=== PATIENT | female | born 1945 | race Caucasian/White ===

== ENCOUNTER → 2017-04-08 15:47 | Outpatient (CLI) | payer MEDICARE ==
[2013-03-17 14:56] VITALS: BMI 46.5
[~2017-04-08 15:47] MED LIST: BUDEPRION SR150 MG PO; ESTRACE1 MG PO; GAS-X80 MG PO; INDERAL 40 MG T40 MG PO; KLOR-CON M2020 MEQ PO; LASIX40 MG PO; LEVAQUIN750 MG PO; MIRAPEX1 MG; MULTIPLE VITAMI1 TA1 PO; OCUVITE PRESERV1 TAB PO; OS-CAL 500+D TA1 TAB PO; PROTONIX40 MG PO; SYNTHROID137 MCG PO; TYLENOL325 MG PO; VITAMIN B-121000 MC3
[2017-04-08 19:19] LABS: % SATURATION 4 % (15-55); IRON 21 ug/dl (35-150); TOTAL IRON BIND CAPACITY 517 ug/dl (260-445)
[2017-04-08 19:31] LABS: UNSAT IRON BIND CAPACITY 496 ug/dl (150-375)
== END | disposition home or self-care (01) ==
LOC: D.LABREF 15:47
PROVIDERS: Family Medicine
DX: D64.9 Anemia, unspecified (principal)

== ENCOUNTER → 2017-05-15 18:15 | Outpatient (CLI) | payer MEDICARE ==
[2013-03-17 14:56] VITALS: BMI 46.5
== END | disposition home or self-care (01) ==
LOC: D.MAMMO 04-24 15:30
DX: Z12.31 Encounter for screening mammogram for malignant neoplasm of breast (principal)

== ENCOUNTER → 2017-05-27 14:09 | Outpatient (CLI) | payer MEDICARE ==
[2013-03-17 14:56] VITALS: BMI 46.5
== END | disposition home or self-care (01) ==
LOC: D.RT 14:00
DX: J45.991 Cough variant asthma (principal)

== ENCOUNTER → 2018-03-14 13:38 | Outpatient (CLI) | payer OTHER ==
[2013-03-17 14:56] VITALS: BMI 46.5
== END | disposition home or self-care (01) ==
LOC: D.RT 13:38
DX: J45.991 Cough variant asthma (principal)

== ENCOUNTER → 2018-05-28 16:52 | Outpatient (CLI) | payer OTHER ==
[2013-03-17 14:56] VITALS: BMI 46.5
== END | disposition home or self-care (01) ==
LOC: D.MAMMO 14:00
DX: Z12.31 Encounter for screening mammogram for malignant neoplasm of breast (principal)

== ENCOUNTER → 2019-06-10 12:38 | Outpatient (CLI) | payer OTHER ==
[2013-03-17 14:56] VITALS: BMI 46.5
== END | disposition home or self-care (01) ==
LOC: D.RAD 12:38
PROVIDERS: ATTEND Family Medicine
DX: R13.10 Dysphagia, unspecified (principal)

== ENCOUNTER 2019-06-15 10:07 | Outpatient (CLI) | payer OTHER ==
[~2019-06-15] VITALS: Ht 162.6 cm; Wt 79.1 kg
[2019-06-15 10:53] VITALS: BP 127/86; Ht 162.6 cm; Wt 79.1 kg
--- NOTE | 2019-06-15 11:48 | NUR ---
1140-iv infusion complete and IV d/c.
--- NOTE | 2019-06-15 11:54 | NUR ---
PT ROUNDED ON AT THIS TIME, NO SIGNS OF REACTION TO MEDICATION. PT RESTING COMFORTABLY AT THIS TIME, NAD NOTED.
--- NOTE | 2019-06-15 12:03 | NUR ---
PT LEAVING OPS UNIT AT THIS TIME, AMBULATORY, NAD NOTED.
== END 2019-06-15 12:02 | disposition home or self-care (01) ==
LOC: D.OPS 10:07
PROVIDERS: ATTEND Family Medicine
DX: M81.0 Age-related osteoporosis without current pathological fracture (principal)

== ENCOUNTER → 2019-08-11 19:00 | Outpatient (CLI) | payer OTHER ==
[2019-06-15 10:53] VITALS: BMI 29.9
== END | disposition home or self-care (01) ==
LOC: D.MAMMO 16:00
PROVIDERS: ATTEND Family Medicine
DX: Z12.31 Encounter for screening mammogram for malignant neoplasm of breast (principal)

== ENCOUNTER → 2019-09-02 08:38 | Outpatient (CLI) | payer OTHER ==
[2019-06-15 10:53] VITALS: BMI 29.9
== END | disposition home or self-care (01) ==
LOC: D.RT 06-12 10:00
PROVIDERS: ATTEND Internal Medicine Pulmonary Disease
DX: J45.991 Cough variant asthma (principal)

== ENCOUNTER 2020-03-17 08:00 | Outpatient (CLI) | payer OTHER ==
[2019-06-15 10:53] VITALS: BMI 29.9
== END 2020-03-17 15:25 | disposition home or self-care (01) ==
LOC: D.MAMMO 08:00
PROVIDERS: ATTEND Family Medicine
DX: N63.25 Unspecified lump in the left breast, overlapping quadrants (principal)

== ENCOUNTER → 2020-10-06 13:11 | Outpatient (CLI) | payer OTHER ==
[2019-06-15 10:53] VITALS: BMI 29.9
== END | disposition home or self-care (01) ==
LOC: D.RT 13:00
PROVIDERS: ATTEND Internal Medicine Pulmonary Disease
DX: J45.991 Cough variant asthma (principal)